=== PATIENT | female | born 1930 | race Caucasian/White ===

== ENCOUNTER 2018-09-04 20:56 | Inpatient (IN) ==
[2018-09-04] MEDS ORDERED: Morphine Inj 4 MG/ML Vial IV.PUSH ONE (21:32)
--- NOTE | 2018-09-04 21:32 | ED ---
HPI General Chief complaint: Extremity Injury, Lower Stated complaint: R Hip pain/Fall Time Seen by Provider: 09/04/18 21:08 Source: patient Mode of arrival: EMS Limitations: no limitations History of Present Illness HPI narrative: The patient is an 88 year old female who presents to the [facility] emergency department with a history of having a waist high dresser fall on her on the floor prior to arrival. The patient reports that she was attempting to rearrange some papers in the third drawer when the dresser fell on her. She reports that she was unable to get up. She reports having pelvis pain worse in the right hip compared to the left. She denies any prior pelvis or hip surgery. Patient was brought in by ambulance services. The patient had intact sensation and pulses. The patient had pain with any attempts at movement of her pelvis or hips. The patient reports that her primary care physician is in [facility]. She denies taking any blood thinners or aspirin on a daily basis. She denies hitting her head or losing consciousness. She reports that she fell backwards primarily onto the right hip. She denies having any other injuries associated. She denies having any chest pain, chest pressure, or shortness of breath. She denies having any abdominal pain. On review of systems otherwise, the patient denies having any known recent fevers, cough, congestion, neck pain, vomiting, diarrhea, urinary symptoms, or neurologic symptoms. Related Data Home Medications Medication Instructions Recorded Confirmed bupropion HCl 100 mg PO DAILY 09/04/18 09/05/18 carvedilol 6.25 mg PO BID 09/04/18 09/05/18 olmesartan-hydrochlorothiazide 1 tab PO DAILY 09/04/18 09/05/18 gabapentin 100 mg PO HS 09/05/18 09/05/18 Allergies Allergy/AdvReac Type Severity Reaction Status Date / Time codeine AdvReac Chest Pain Verified 09/05/18 02:59 Review of Systems ROS: all other systems reviewed are negative [facility] Medical History Medical History Hyperlipidemia (Acute) Hypertension (Acute) Social History Social History Substance History: No History of Abuse Second Hand Smoke Exposure: No Smoking Status: Never smoker How Often Do You Have a Drink Containing Alcohol: Never Recent Travel in [facility] within the Last 8 Weeks: No Recent Out of Country Travel within the Last 8 Weeks: No Immunization History Tetanus Immunization: <5 Years Exam Const General: cooperative, no acute distress and well developed Nutritional Appearance: well nourished Orientation: alert, awake and oriented x3 HENMT Head: normocephalic and atraumatic Nose: no nasal discharge and no epistaxis Mouth: moist mucous membranes Throat: posterior oropharynx normal and uvula midline Eyes Sclera: normal sclerae Pupils: PERRL EOM: EOM intact bilaterally Neck Neck: no meningeal signs, trachea midline and no JVD Resp Effort & Inspection: no use of accessory muscles Auscultation: clear to auscultation bilaterally Cardio Rate: regular rate Rhythm: regular rhythm Heart Sounds: no murmurs GI Inspection: non-distended Palpation: soft, no hepatosplenomegaly, no guarding, not rigid and nontender Auscultation: normal bowel sounds Back/Spine/Pelvis Back: no CVA tenderness Cervical Spine: No cervical spinal tenderness Thoracic/Lumbar Spine: No thoracic spinal tenderness and No lumbar spinal tenderness Skin General: dry skin (warm) Neuro General: alert, awake, oriented x3 and other (Grossly nonfocal.) Speech: speech normal Motor: no movement abnormalities noted Extrem General: normal to inspection (2+ pulses in all 4 extremities. No pelvis instability or pain on pelvic rock.), no calf tenderness, no clubbing, no cyanosis and no edema Right upper extremity: normal to inspection and full ROM Left upper extremity: normal to inspection and full ROM Right lower extremity: hip/thigh (The patient has no visible deformity, however the patient reports pain in the right hip with flexion of the hip and internal and external rotation. No knee, ankle, or foot pain. The patient has full range of motion of her knee, ankle, foot. Less than 3-second capillary refill. Intact sensation over all digits. The patient has soft compartments.) Left lower extremity: hip/thigh (On attempts at flexion, extension, internal and external rotation of the left hip, the patient reports having pain in the left groin.No knee, ankle, or foot pain. The patient has full range of motion of her knee, ankle, foot. Less than 3-second capillary refill. Intact sensation over all digits. ) Psych Mood: congruent mood Affect: normal affect Judgment: judgment good Course Consultations Consultation #1: The patient's case including history, pertinent physical examination findings, and laboratory studies were discussed with Dr. Gallagher, the trauma surgeon. It was agreed that the patient would be admitted to the trauma service. Initial Documented Vital Signs Pulse Rate 60 09/04/18 21:10 Respiratory Rate 20 09/04/18 21:10 Blood Pressure 194/86 H 09/04/18 21:10 Pulse Oximetry 97 09/04/18 21:10 Last Documented Vital Signs Temperature 97.9 F 09/05/18 03:55 Pulse Rate 66 09/05/18 03:55 Respiratory Rate 16 09/05/18 03:55 Blood Pressure 146/73 H 09/05/18 03:55 Pulse Oximetry 98 09/05/18 03:55 Medical Decision Making MDM Narrative Medical decision making narrative: During the course of the patient's emergency department visit, the patient's history, examination, and differential diagnosis were reviewed with the patient. The patient was placed on a local city driver with oximetry and frequent blood pressure monitoring. The patient had IV access obtained and blood work sent for analysis. A diagnostic evaluation was started regarding the patient's pelvis pain. The patient was started on normal saline IV fluids at 100 mL/hr, Morphine for pain, Zofran for nausea. The patient's diagnostic studies are remarkable for a CBC that is essentially within normal limit, PT PTT within normal limits, chemistries remarkable for a CO2 of 32.6, BUN 19, creatinine 1.03, cardiac enzymes are within normal limits, lipase 161. An x-ray of the patient's right hip reveals a probable minimally displaced right superior pubic ramus fracture, no other acute abnormality. CT scan of the abdomen and pelvis reveals multiple pelvic fractures and an anterior pelvic extraperitoneal hematoma. Right shoulder x-ray showed no acute abnormality. Chest x-ray showed no mild bibasilar atelectasis. A call was placed out to the trauma surgeon regarding this patient's case. He did agree to admit the patient for continued evaluation and treatment. The patient's results were discussed with the patient, including the plan of care. I explained that further testing and/ or monitoring is indicated based on the patient's history, examination, and/ or laboratory findings. Therefore, I recommended admission for additional evaluation. The patient expressed understanding and was agreeable with this plan. The patient was admitted to the hospital in guarded condition and sent to a bed under the care of trauma service. The patient CT scan of the abdomen and pelvis showed multiple pelvis fractures including a right sacral all of fracture, superior ramus fracture that extends into the junction of the acetabulum. Medical Screen Exam Complete: Yes Emergency Medical Condition: Yes Differential Diagnosis Differential Diagnosis: Pelvis fracture, versus hip fracture, versus hip dislocation, versus contusion Medical Records Medical records reviewed: Yes I reviewed the patient's medical records. Lab Data Lab results reviewed: Yes I reviewed the patient's lab results. Result diagrams: 09/04/18 22:16 09/04/18 22:16 Lab Results 09/04/18 09/04/18 09/04/18 Range/Units 22:16 22:16 22:16 WBC 9.0 (4.0-11.0) th/mm3 RBC 4.31 (4.00-5.30) mil/mm3 Hgb 13.0 (11.6-15.3) gm/dL Hct 38.6 (35.0-46.0) % MCV 89.5 (80.0-100.0) fL MCH 30.2 (27.0-34.0) pg MCHC 33.7 (32.0-36.0) % RDW 14.4 (11.6-17.2) % Plt Count 175 (150-450) th/mm3 MPV 7.8 (7.0-11.0) fL Neut % (Auto) 78.7 H (16.0-70.0) % Lymph % (Auto) 15.1 (9.0-44.0) % Story % (Auto) 5.0 (0.0-8.0) % Eos % (Auto) 0.7 (0.0-4.0) % Baso % (Auto) 0.5 (0.0-2.0) % Neut # (Auto) 7.1 (1.8-7.7) th/mm3 Lymph # (Auto) 1.4 (1.0-4.8) th/mm3 Story # (Auto) 0.5 (0.0-0.9) th/mm3 Eos # (Auto) 0.1 (0.0-0.4) th/mm3 Baso # (Auto) 0.0 (0.0-0.2) th/mm3 WBC Differential . Differential Comment Auto diff final PT 10.0 (9.8-11.6) sec INR 1.0 Ratio APTT 26.8 (23.4-31.7) sec Sodium (136-145) meq/L Potassium (3.5-5.1) meq/L Chloride (98-107) meq/L Carbon Dioxide (21.0-32.0) meq/L Anion Gap (5-15) meq/L BUN (7-18) mg/dL Creatinine (0.50-1.00) mg/dL Estimated GFR (>89) mL/min Random Glucose (74-106) mg/dL Calcium (8.5-10.1) mg/dL Total Bilirubin (0.2-1.0) mg/dL AST (15-37) U/L ALT (10-53) U/L Alkaline Phosphatase (45-117) U/L Total Creatine Kinase (26-192) U/L Troponin I (0.02-0.05) ng/mL Total Protein (6.4-8.2) g/dL Albumin (3.4-5.0) g/dL Lipase 161 (73-393) U/L Nasal Screen MRSA (PCR) (Negative) 09/04/18 09/05/18 Range/Units 22:16 04:45 WBC (4.0-11.0) th/mm3 RBC (4.00-5.30) mil/mm3 Hgb (11.6-15.3) gm/dL Hct (35.0-46.0) % MCV (80.0-100.0) fL MCH (27.0-34.0) pg MCHC (32.0-36.0) % RDW (11.6-17.2) % Plt Count (150-450) th/mm3 MPV (7.0-11.0) fL Neut % (Auto) (16.0-70.0) % Lymph % (Auto) (9.0-44.0) % Story % (Auto) (0.0-8.0) % Eos % (Auto) (0.0-4.0) % Baso % (Auto) (0.0-2.0) % Neut # (Auto) (1.8-7.7) th/mm3 Lymph # (Auto) (1.0-4.8) th/mm3 Story # (Auto) (0.0-0.9) th/mm3 Eos # (Auto) (0.0-0.4) th/mm3 Baso # (Auto) (0.0-0.2) th/mm3 WBC Differential Differential Comment PT (9.8-11.6) sec INR Ratio APTT (23.4-31.7) sec Sodium 141 (136-145) meq/L Potassium 3.6 (3.5-5.1) meq/L Chloride 103 (98-107) meq/L Carbon Dioxide 32.6 H (21.0-32.0) meq/L Anion Gap 5 (5-15) meq/L BUN 19 H (7-18) mg/dL Creatinine 1.03 H (0.50-1.00) mg/dL Estimated GFR 51 L (>89) mL/min Random Glucose 95 (74-106) mg/dL Calcium 8.7 (8.5-10.1) mg/dL Total Bilirubin 0.5 (0.2-1.0) mg/dL AST 29 (15-37) U/L ALT 33 (10-53) U/L Alkaline Phosphatase 52 (45-117) U/L Total Creatine Kinase 82 (26-192) U/L Troponin I Less than 0.02 L (0.02-0.05) ng/mL Total Protein 7.3 (6.4-8.2) g/dL Albumin 3.6 (3.4-5.0) g/dL Lipase (73-393) U/L Nasal Screen MRSA (PCR) Not detected (Negative) Imaging Data Radiologist's impression: Hip X-Ray 09/04/18 21:22 CONCLUSION: 1. Probable minimally displaced right superior pubic ramus fracture. 2. No fracture or subluxation of either hip. 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 Chest X-Ray 09/04/18 21:23 CONCLUSION: Mild bibasilar atelectasis. Abdomen/Pelvis CT 09/05/18 00:00 CONCLUSION: 1. Multiple pelvic fractures and anterior pelvic extraperitoneal hematoma 2. Likely benign and/or chronic findings involving the abdominal viscera as described Shoulder X-Ray 09/05/18 00:10 CONCLUSION: No evidence of recent bony injury. ECG Data Attestation: I personally reviewed and interpreted this ECG as follows: Interpretation: The patient had a EKG done on arrival that shows a sinus bradycardia heart rate of 58, QRS duration is 155 ms, QTC is 428 ms, the patient is noted to have marked left axis deviation, right bundle branch block, no acute ST segment elevation, T waves are inverted in lead III, V1, V2, V3. Discharge Plan Discharge Disposition Patient Disposition: 30 Still Patient Discharge Details Diagnosis: Multiple closed pelvic fractures without disruption of pelvic anvik, Fall Physicians Team ED Provider: Seema Mckinney Primary Care Provider: UNKNOWN, Attending Provider: Juan Gallagher Other Providers: Jair Marin ; Heidy Ortiz ; Aleshia Cueto ; Garth Avalos ; Sadie Walters ; Paige Thomas ; Elan Kathleen ; Juan Gallagher ; Antoine Bravo ; [employer] Discharge Interventions Interventions: ED Discharge Assessment Last Done: 09/05/18 02:36 Status ED Status: Left Department Discharge Information Discharge Date/Time: 09/05/18 02:36
--- NOTE | 2018-09-04 21:54 | XR ---
EXAM DATE: 09/04/2018 9:51 PM EST AGE/SEX: 88 years / Female INDICATIONS: Trauma. Post fall. CLINICAL DATA: This is the patient's initial encounter. Patient reports that signs and symptoms have been present for 1 day and indicates a pain score of 0/10. MEDICAL/SURGICAL HISTORY: Hypertension. None. COMPARISON: No prior exams available for comparison. FINDINGS: There is mild atelectasis of both bases. No pneumonic infiltrate, pneumothorax or large effusion seen . Heart size within normal limits. Mid to upper thoracic kyphoplasty changes are noted. No perceptible acute bony abnormality. CONCLUSION: Mild bibasilar atelectasis. Electronically signed by: Tiburcio Farrell MD 09/04/2018 9:53 PM EST
--- NOTE | 2018-09-04 22:00 | XR ---
EXAM DATE: 09/04/2018 9:54 PM EST AGE/SEX: 88 years / Female INDICATIONS: Right hip pain post fall. Pain near rami of pelvis also. CLINICAL DATA: This is the patient's initial encounter. Patient reports that signs and symptoms have been present for 1 day and indicates a pain score of 10/10. MEDICAL/SURGICAL HISTORY: Hypertension. None. COMPARISON: No prior exams available for comparison. FINDINGS: A minimally displaced fracture of the right superior pubic ramus is suspected. Bony pelvis otherwise appears intact. No fracture or subluxation of either hip. There is moderate to severe bilateral hip o steoarthritis. CONCLUSION: 1. Probable minimally displaced right superior pubic ramus fracture. 2. No fracture or subluxation of either hip. 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 Electronically signed by: Tiburcio Farrell MD 09/04/2018 9:59 PM EST
[2018-09-04] MEDS: Sod Chloride 0.9% Inj 1,000 ML IV.CONT SCH (22:16)
[2018-09-04 22:36] LABS: Baso % (Auto) 0.5 % (0.0-2.0); Eos # (Auto) 0.1 th/mm3 (0.0-0.4); Eos % (Auto) 0.7 % (0.0-4.0); Hematocrit 38.6 % (35.0-46.0); Lymph # (Auto) 1.4 th/mm3 (1.0-4.8); Lymph % (Auto) 15.1 % (9.0-44.0); Mean Corpuscular HGB Conc 33.7 % (32.0-36.0); Mean Corpuscular Hemoglobin 30.2 pg (27.0-34.0); Mean Corpuscular Volume 89.5 fL (80.0-100.0); Mean Platelet Volume 7.8 fL (7.0-11.0); Mono # (Auto) 0.5 th/mm3 (0.0-0.9); Neut # (Auto) 7.1 th/mm3 (1.8-7.7); Neut % (Auto) 78.7 % (16.0-70.0); Platelet Count 175 th/mm3 (150-450); Red Blood Count 4.31 mil/mm3 (4.00-5.30); Red Cell Distribution Width 14.4 % (11.6-17.2)
[2018-09-04 22:51] LABS: Activated Partial Thrombo Time 26.8 sec (23.4-31.7)
[2018-09-04 22:56] LABS: Alanine Aminotransferase 33 U/L (10-53); Albumin 3.6 g/dL (3.4-5.0); Anion Gap 5 meq/L (5-15); Aspartate Aminotransferase 29 U/L (15-37); Blood Urea Nitrogen 19 mg/dL (7-18); Calcium 8.7 mg/dL (8.5-10.1); Carbon Dioxide 32.6 meq/L (21.0-32.0); Chloride 103 meq/L (98-107); Glomerular Filtration Rate 51 mL/min (>89); Glucose,Random 95 mg/dL (74-106); Potassium 3.6 meq/L (3.5-5.1); Sodium 141 meq/L (136-145)
[2018-09-04 22:59] LABS: Alkaline Phosphatase 52 U/L (45-117); Total Protein 7.3 g/dL (6.4-8.2)
[2018-09-04 23:05] LABS: Creatine Kinase 82 U/L (26-192)
--- NOTE | 2018-09-05 00:49 | CT ---
EXAM DATE: 09/05/2018 12:33 AM EST AGE/SEX: 88 years / Female INDICATIONS: Lower abdominal pain, dresser fell on patient. CLINICAL DATA: This is the patient's initial encounter. Patient reports that signs and symptoms have been present for 1 day and indicates a pain score of 8/10. MEDICAL/SURGICAL HISTORY: Hypertension. None. ORAL CONTRAST: No oral contrast ingested. RADIATION DOSE: 6.88 CTDI (mGy) COMPARISON: No prior exams available for comparison. TECHNIQUE: Multiple contiguous axial images were obtained through the abdomen and pelvis following b olus infusion of 95 ml Omnipaque 350 (iohexol) nonionic water-soluble contrast as a single exam dos e. No oral contrast ingested. Using automated exposure control and adjustment of the mA and/or kV ac cording to patient size, radiation dose was kept as low as reasonably achievable to obtain optimal di agnostic quality images. DICOM format image data is available electronically for review and comparis on. FINDINGS: Lower Lungs: Mild atelectasis in the lung bases. Liver: Mild intra and extrahepatic biliary ductal dilatation with common duct diameter of approximate ly 12 mm. Small left lobe liver cyst. Spleen: Homogeneous density without enlargement. Pancreas: Slightly less than 2 cm circumscribed cystic area in the pancreatic head which appears sha rly benign. Kidneys: Small bilateral renal cysts. No evidence of hydronephrosis. Adrenal Glands: Unremarkable. Aorta: The aorta and proximal iliac vessels are grossly unremarkable without aneurysmal dilation. Bowel/Mesentery: The bowel loops are grossly unremarkable. The cecum and sigmoid colon have a normal configuration. Abdominal Wall: Intact. Retroperitoneum: No evidence of adenopathy in the retrocrural, para-aortic, or deep pelvic regions. Bladder: Anterior perivesical induration which may be edema or hematoma associated with pelvic fract ures. Reproductive Organs: Uterus surgically absent. No evidence of pelvic mass or free fluid Inguinal: The inguinal region is unremarkable without evidence of adenopathy. Bony Structures: Minimally displaced oblique fracture involving the right sacral ala adjacent to an d involving the anterior aspect of the right sacroiliac joint. Minimally displaced fractures of the i nferior pubic rami bilaterally. Slight fragmentation of the pubic symphysis. Minimally displaced roma ical disruption at the junction of right superior pubic ramus with the acetabulum. Prominent degenera tive changes in the hips bilaterally. CONCLUSION: 1. Multiple pelvic fractures and anterior pelvic extraperitoneal hematoma 2. Likely benign and/or chronic findings involving the abdominal viscera as described Electronically signed by: Tiburcio Luna MD 09/05/2018 12:48 AM EST
--- NOTE | 2018-09-05 01:04 | XR ---
EXAM DATE: 09/05/2018 12:56 AM EST AGE/SEX: 88 years / Female INDICATIONS: Right shoulder pain after a dresser falling on patient. CLINICAL DATA: This is the patient's initial encounter. Patient reports that signs and symptoms have been present for 1 day and indicates a pain score of 8/10. MEDICAL/SURGICAL HISTORY: Hypertension. None. COMPARISON: No prior exams available for comparison. FINDINGS: Bony structures are intact and in normal alignment. Joints are intact without dislocation or signifi cant arthropathy. Osseous density is normal. Soft tissues are unremarkable. No radiopaque foreign bodies seen. CONCLUSION: No evidence of recent bony injury. Electronically signed by: Tiburcio Luna MD 09/05/2018 1:02 AM EST
--- NOTE | 2018-09-05 01:24 | P.HPCC ---
History of Present Illness Primary Care Physician: UNKNOWN Chief Complaint: pelvic pain History of Present Illness: 88 year old female who presents to the [facility] emergency department with a history of having a waist high dresser fall on her on the floor prior to arrival. The patient reports that she was attempting to rearrange some papers in the third drawer when the dresser fell on her. She reports that she was unable to get up. She reports having pelvis pain worse in the right hip compared to the left. She denies any prior pelvis or hip surgery. Patient was brought in by ambulance services. The patient had intact sensation and pulses. The patient had pain with any attempts at movement of her pelvis or hips. The patient reports that her primary care physician is in [facility]. She denies taking any blood thinners or aspirin on a daily basis. She denies hitting her head or losing consciousness. She reports that she fell backwards primarily onto the right hip. She denies having any other injuries associated. She denies having any chest pain, chest pressure, or shortness of breath. She denies having any abdominal pain. On review of systems otherwise, the patient denies having any known recent fevers, cough, congestion, neck pain, vomiting, diarrhea, urinary symptoms, or neurologic symptoms. Inpatient Certification: I certify that the inpatient services were ordered in accordance with Medicare regulations governing the order. This includes certification that hospital inpatient services are reasonable and necessary and in the case of services not specified as inpatient-only under 42 CFR 419.22(n), that they are appropriately provided as inpatient services in accordance to with the 2-midnight benchmark under 43 CFR 412.3(e) Past medical history significant for hypertension breast cancer frequent urinary tract infections Past surgical history significant for rectal prolapse, cholecystectomy, pilonidal cyst Estimated Total Length of Stay (Days): 3 Plans for Post Hospital Care: Not yet determined Review of Systems All other systems reviewed negative except as stated in HPI PMFSH - History History Provided By: Patient - Medical History Medical History: Medical History (Last Reviewed 09/06/18 @ 07:16 by Gricel Mancilla) Hyperlipidemia Hypertension - Tobacco History Second Hand Smoke Exposure: No Smoking Status: Never smoker - Alcohol History How Often Do You Have a Drink Containing Alcohol: Never - Substance Use History Substance History: No History of Abuse - Travel History Recent Travel in the [place] Within the Last 8 Weeks: No Recent Travel Out of the Country Within the Last 8 Weeks: No - Immunization History Tetanus Immunization: <5 Years Medications and Allergies Active Medications: Active Medications Acetaminophen (Tylenol) 650 mg PO Q4H PRN PRN Reason: Acute Pain Al Hydroxide/Mg Hydroxide (Milk Of Nadia Elizabeth) 30 ml PO Q6H PRN PRN Reason: CONSTIPATION Chlorhexidine Gluconate (Chlorhexidine 2% Cloth) 3 pack TOPICAL DAILY@0400 EDITH Stop: 09/10/18 03:59 Chlorhexidine Gluconate (Chlorhexidine 2% Cloth) 3 pack TOPICAL DAILY@0400 PRN PRN Reason: Extra cloth needed Stop: 09/10/18 03:59 Docusate Sodium (Colace) 100 mg PO BID [facility] Enalaprilat (Vasotec Inj) 1.25 mg IV.PUSH Q8H PRN PRN Reason: Blood pressure 180/95 Enoxaparin Sodium (Lovenox Inj) 30 mg SQ Q12HR [facility] Sodium Chloride (Ns Inj) 1,000 mls @ 100 mls/hr IV.CONT .Q10H [facility] Last Admin: 09/04/18 22:16 Dose: 100 mls/hr Ondansetron HCl (Zofran Inj) 4 mg IV.PUSH Q6H PRN PRN Reason: NAUSEA OR VOMITING Sodium Chloride (Ns Flush) 2 ml IV.FLUSH UNSCH PRN PRN Reason: FLUSH AFTER USING IV ACCESS Allergies Allergy/AdvReac Type Severity Reaction Status Date / Time codeine AdvReac Chest Pain Verified 09/05/18 02:59 Home Medications Medication Instructions Recorded Confirmed Type bupropion HCl 100 mg PO Q12HR 09/04/18 09/05/18 History carvedilol 6.25 mg PO BID 09/04/18 09/05/18 History olmesartan-hydrochlorothiazide 1 tab PO DAILY 09/04/18 09/05/18 History gabapentin 100 mg PO HS 09/05/18 09/05/18 History Results - Labs CBC & Chem 7: 09/06/18 09:39 09/06/18 03:59 Labs: Short CBC 09/04/18 Range/Units 22:16 WBC 9.0 (4.0-11.0) th/mm3 Hgb 13.0 (11.6-15.3) gm/dL Hct 38.6 (35.0-46.0) % Plt Count 175 (150-450) th/mm3 BMP 09/04/18 22:16 Sodium 141 Potassium 3.6 Chloride 103 Carbon Dioxide 32.6 H BUN 19 H Creatinine 1.03 H Calcium 8.7 Cardiac Enzymes 09/04/18 Range/Units 22:16 Total Creatine Kinase 82 (26-192) U/L Troponin I Less than 0.02 L (0.02-0.05) ng/mL Liver Function 09/04/18 Range/Units 22:16 Total Bilirubin 0.5 (0.2-1.0) mg/dL AST 29 (15-37) U/L ALT 33 (10-53) U/L Alkaline Phosphatase 52 (45-117) U/L Albumin 3.6 (3.4-5.0) g/dL - Imaging Impressions Hip X-Ray 09/04/18 21:22 CONCLUSION: 1. Probable minimally displaced right superior pubic ramus fracture. 2. No fracture or subluxation of either hip. 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 Chest X-Ray 09/04/18 21:23 CONCLUSION: Mild bibasilar atelectasis. Abdomen/Pelvis CT 09/05/18 00:00 CONCLUSION: 1. Multiple pelvic fractures and anterior pelvic extraperitoneal hematoma 2. Likely benign and/or chronic findings involving the abdominal viscera as described Shoulder X-Ray 09/05/18 00:10 CONCLUSION: No evidence of recent bony injury. Exam Vital signs: Vital Signs 09/04/18 21:10 09/04/18 21:12 09/04/18 23:27 Pulse Rate 60 60 Respiratory Rate 20 20 Blood Pressure 194/86 H Pulse Oximetry 97 97 96 Intake & Output 09/04/18 09/04/18 09/05/18 06:59 18:59 06:59 Weight 58.967 kg - Constitutional mild distress - Routine HEENT Exam Head: Present: normocephalic, atraumatic Eye: Present: EOMI, PERRL ENT: Present: mucous membranes dry - Routine Neck Exam Present: trachea midline. Absent: tenderness - Routine Chest/Breast/Axilla Exam Chest wall: Absent: tenderness - Routine Respiratory Exam Present: decreased breath sounds, CTA bilaterally - Routine Cardiovascular Exam Present: RRR - Routine Abdominal Exam Present: soft. Absent: tenderness, distended - Routine Extremities Exam Present: pulses intact, tenderness (to pelvic manipulation, stable). Absent: cyanosis, clubbing, edema - Routine Skin Exam Present: dry, warm - Routine Neurological Exam Present: alert, oriented X3, CN II-XII intact. Absent: sensory deficit, motor deficit Caprini VTE Risk Assessment Caprini VTE Risk Assessment: Moderate/High Risk (score >= 2) Caprini Risk Assessment Model: Point Value = 1 Point Value = 2 Point Value = 3 Point Value = 5 Age 41-60 Minor surgery BMI > 25 kg/m2 Swollen legs Varicose veins or History of unexplained or recurrent spontaneous Oral contraceptives or hormone replacement Sepsis (< 1 month) Serious lung disease, including pneumonia (< 1 month) Abnormal pulmonary function Acute myocardial infarction Congestive heart failure (< 1 month) History of inflammatory bowel disease Medical patient at bed rest Age 61-74 Arthroscopic surgery Major open surgery (> 45 min) Laparoscopic surgery (> 45 min) Malignancy Confined to bed (> 72 hours) Immobilizing plaster cast Central venous access Age >= 75 History of VTE Family history of VTE Factor V Leiden Prothrombin [id number] Lupus anticoagulant Anticardiolipin antibodies Elevated serum homocysteine Heparin-induced thrombocytopenia Other congenital or acquired thrombophilia Stroke (< 1 month) Elective arthroplasty Hip, pelvis, or leg fracture Acute spinal cord injury (< 1 month) Prophylaxis Regimen: Total Risk Factor Score Risk Level Prophylaxis Regimen 0-1 Low Early ambulation 2 Moderate Order ONE of the following: *Sequential Compression Device (SCD) *Heparin 5000 units SQ BID 3-4 Higher Order ONE of the following medications: *Heparin 5000 units SQ TID *Enoxaparin/Lovenox 40 mg SQ daily (WT < 150 kg, CrCl > 30 mL/min) *Enoxaparin/Lovenox 30 mg SQ daily (WT < 150 kg, CrCl > 10-29 mL/min) *Enoxaparin/Lovenox 30 mg SQ BID (WT < 150 kg, CrCl > 30 mL/min) AND/OR *Sequential Compression Device (SCD) 5 or more Highest Order ONE of the following medications: *Heparin 5000 units SQ TID (Preferred with Epidurals) *Enoxaparin/Lovenox 40 mg SQ daily (WT < 150 kg, CrCl > 30 mL/min) *Enoxaparin/Lovenox 30 mg SQ daily (WT < 150 kg, CrCl > 10-29 mL/min) *Enoxaparin/Lovenox 30 mg SQ BID (WT < 150 kg, CrCl > 30 mL/min) AND *Sequential Compression Device (SCD) Assessment and Plan - Assessment and Plan Plan: Admit to trauma service Pain control and pulmonary toilet Orthopedic surgery consult Although fractures appear nonoperative, patient will require rehabilitation and placement
[2018-09-05] MEDS: Chlorhexidine Gluconate 2% 1 Pack (2 Cloths) TOPICAL SCH (03:47)
[2018-09-05] MEDS ORDERED: Chlorhexidine Gluconate 2% 1 Pack (2 Cloths) TOPICAL PRN (04:00)
[2018-09-05] MEDS: Sod Chloride 0.9% Inj 1,000 ML IV.CONT SCH ×3 (06:04→18:11)
--- NOTE | 2018-09-05 07:23 | P.CONOP ---
[facility] Orthopedics Consult Note - [facility] Consult date: 09/05/18 Consult reason: fracture Chief complaint: Multiple Pelvic Fxs s/p [place] Falling on Patient Narrative: Patient is an 88-year-old white female who presented to the emergency department on 09/04/2018 after having a dresser fall on her. She is originally from [place]. She lives with her family down here in [place] for the winter that the dresser fell on her but she did not lose any consciousness. She reports pain in her low back as well as in her groin and pelvis. She states she has pain anytime she moves or tries to bear weight. She states that the only comfortable position at this point is with her hips flexed and laying in bed. She denies any numbness or tingling. Denies any radiation of symptoms. Denies any pain anywhere else. States that she was ambulating with a walker prior to her injury. She states she has a history of right hip pain and arthritis which is complicated her ability to ambulate and has necessitated her use of a walker. <Fredy Shepard - Last Filed: 09/05/18 07:13> Review of Systems Patient denies any fevers, weight loss, headache, visual changes, hearing loss, chest pain, palpitations, shortness of breath, nausea, vomiting, urinary changes , neck or back pain, skin rashes, weakness or numbness of extremities, or depression. All other systems reviewed negative except as stated in HPI <Fredy Shepard - Last Filed: 09/05/18 07:13> PMFSH - History History Provided By: Patient, Family Member - Medical / Surgical Hx Neg / Unobtainable Medical Problems Denied: Yes - Medical History Medical History: Medical History (Last Reviewed 09/05/18 @ 07:14 by ADDISON Wilkinson) Hyperlipidemia Hypertension - Social History I have reviewed the patient's Social History: Yes - Tobacco History Second Hand Smoke Exposure: No Smoking Status: Never smoker - Alcohol History How Often Do You Have a Drink Containing Alcohol: Never - Substance Use History Substance History: No History of Abuse - Travel History Recent Travel in the [facility] Within the Last 8 Weeks: No Recent Travel Out of the Country Within the Last 8 Weeks: No - Immunization History Tetanus Immunization: <5 Years Hx Influenza Vaccine This Season: Yes <Fredy Shepard - Last Filed: 09/05/18 07:13> - Medical History Medical History: Medical History (Last Reviewed 09/05/18 @ 07:14 by ADDISON Wilkinson) Hyperlipidemia Hypertension <Jair Marin - Last Filed: 09/05/18 10:05> Medications and Allergies Active Medications: Active Medications Acetaminophen (Tylenol) 650 mg PO Q4H PRN PRN Reason: Acute Pain Al Hydroxide/Mg Hydroxide (Milk Of Magnesia Liq) 30 ml PO Q6H PRN PRN Reason: CONSTIPATION Bupropion HCl (Wellbutrin) 100 mg PO DAILY [facility] Carvedilol (Coreg) 6.25 mg PO BID [facility] Chlorhexidine Gluconate (Chlorhexidine 2% Cloth) 3 pack TOPICAL DAILY@0400 [facility] Stop: 09/10/18 03:59 Last Admin: 09/05/18 03:47 Dose: Not Given Chlorhexidine Gluconate (Chlorhexidine 2% Cloth) 3 pack TOPICAL DAILY@0400 PRN PRN Reason: Extra cloth needed Stop: 09/10/18 03:59 Docusate Sodium (Colace) 100 mg PO BID [facility] Enalaprilat (Vasotec Inj) 1.25 mg IV.PUSH Q8H PRN PRN Reason: Blood pressure 180/95 Enoxaparin Sodium (Lovenox Inj) 30 mg SQ Q12HR [facility] Gabapentin (Neurontin) 300 mg PO BID [facility] Sodium Chloride (Ns Inj) 1,000 mls @ 100 mls/hr IV.CONT .Q10H [facility] Last Admin: 09/05/18 06:04 Dose: 100 mls/hr Ondansetron HCl (Zofran Inj) 4 mg IV.PUSH Q6H PRN PRN Reason: NAUSEA OR VOMITING Sodium Chloride (Ns Flush) 2 ml IV.FLUSH UNSCH PRN PRN Reason: FLUSH AFTER USING IV ACCESS Sodium Chloride (Ns Flush) 2 ml IV.FLUSH BID [facility] <Fredy Shepard - Last Filed: 09/05/18 07:13> Active Medications: Active Medications Acetaminophen (Tylenol) 650 mg PO Q4H PRN PRN Reason: Acute Pain Last Admin: 09/05/18 09:34 Dose: 650 mg Al Hydroxide/Mg Hydroxide (Milk Of Magnesia Liq) 30 ml PO Q6H PRN PRN Reason: CONSTIPATION Bupropion HCl (Wellbutrin) 100 mg PO DAILY [facility] Last Admin: 09/05/18 09:33 Dose: 100 mg Carvedilol (Coreg) 6.25 mg PO BID [facility] Last Admin: 09/05/18 09:33 Dose: 6.25 mg Chlorhexidine Gluconate (Chlorhexidine 2% Cloth) 3 pack TOPICAL DAILY@0400 [facility] Stop: 09/10/18 03:59 Last Admin: 09/05/18 03:47 Dose: Not Given Chlorhexidine Gluconate (Chlorhexidine 2% Cloth) 3 pack TOPICAL DAILY@0400 PRN PRN Reason: Extra cloth needed Stop: 09/10/18 03:59 Docusate Sodium (Colace) 100 mg PO BID [facility] Last Admin: 09/05/18 09:42 Dose: Not Given Enalaprilat (Vasotec Inj) 1.25 mg IV.PUSH Q8H PRN PRN Reason: Blood pressure 180/95 Enoxaparin Sodium (Lovenox Inj) 30 mg SQ Q12HR [facility] Last Admin: 09/05/18 09:35 Dose: 30 mg Gabapentin (Neurontin) 300 mg PO BID [facility] Last Admin: 09/05/18 09:43 Dose: Not Given Sodium Chloride (Ns Inj) 1,000 mls @ 100 mls/hr IV.CONT .Q10H [facility] Last Admin: 09/05/18 09:45 Dose: Not Given Ondansetron HCl (Zofran Inj) 4 mg IV.PUSH Q6H PRN PRN Reason: NAUSEA OR VOMITING Sodium Chloride (Ns Flush) 2 ml IV.FLUSH UNSCH PRN PRN Reason: FLUSH AFTER USING IV ACCESS Sodium Chloride (Ns Flush) 2 ml IV.FLUSH BID [facility] Last Admin: 09/05/18 09:42 Dose: Not Given Tramadol HCl (Ultram) 50 mg PO Q6H PRN PRN Reason: pain 3-10 Last Admin: 09/05/18 07:53 Dose: 50 mg <Jair Marin - Last Filed: 09/05/18 10:05> Allergies Allergy/AdvReac Type Severity Reaction Status Date / Time codeine AdvReac Chest Pain Verified 09/05/18 02:59 Home Medications Medication Instructions Recorded Confirmed Type bupropion HCl 100 mg PO DAILY 09/04/18 09/05/18 History carvedilol 6.25 mg PO BID 09/04/18 09/05/18 History olmesartan-hydrochlorothiazide 1 tab PO DAILY 09/04/18 09/05/18 History gabapentin 100 mg PO HS 09/05/18 09/05/18 History Exam Vital signs: Vital Signs 09/04/18 21:10 09/04/18 21:12 09/04/18 23:27 Temperature Pulse Rate 60 60 Respiratory Rate 20 20 Blood Pressure 194/86 H Pulse Oximetry 97 97 96 09/05/18 03:55 Temperature 97.9 F Pulse Rate 66 Respiratory Rate 16 Blood Pressure 146/73 H Pulse Oximetry 98 Intake & Output 09/04/18 09/05/18 09/05/18 18:59 06:59 18:59 Intake Total 1000 / 1000 Balance 1000 / 1000 Weight 58.9 kg Intake: IV 1000 / 1000 NS Inj 1,000 ML @ 100 mls/hr IV 1000 / 1000 .CONT .Q10H [facility] Rx#:[id number] Other: Weight On Admission 58.9 kg Narrative: General: Well-developed and well-nourished. Resting comfortably in no acute distress Head: Normocephalic and atraumatic Ears: Hearing is intact bilaterally Eyes: Extraocular motion is intact. Pupils are equal round and reactive to light. Neck: No evidence of lymphadenopathy Cranial nerve: II-XII grossly intact Lungs: No use of accessory muscles or breathing and no audible wheezes at bedside Heart: No grade 4 murmur present at bedside Abdomen: Soft and nontender. Musculoskeletal: RLE: Pain in groin and hip with movement of the hip. No pain in the knee, ankle or toes with movement. Full sensation distally with strong dorsiflexion LLE: Minimal discomfort in the hip, knee, ankle or toes with movement. Full sensation distally with strong dorsiflexion BUE: Full movement of shoulder, elbows, wrist and fingers with minimal discomfort. She does have moderate weakness of the right shoulder. Full sensation in bilateral median and ulnar nerve distributions <Fredy Shepard - Last Filed: 09/05/18 07:13> Vital signs: Vital Signs 09/04/18 21:10 09/04/18 21:12 09/04/18 23:27 Temperature Pulse Rate 60 60 Respiratory Rate 20 20 Blood Pressure 194/86 H Pulse Oximetry 97 97 96 09/05/18 03:55 09/05/18 08:24 09/05/18 08:45 Temperature 97.9 F 98.7 F Pulse Rate 66 78 Respiratory Rate 16 18 Blood Pressure 146/73 H 148/67 H Pulse Oximetry 98 96 98 Intake & Output 09/04/18 09/05/18 09/05/18 18:59 06:59 18:59 Intake Total 1000 / 1000 Balance 1000 / 1000 Weight 58.9 kg Intake: IV 1000 / 1000 NS Inj 1,000 ML @ 100 mls/hr IV 1000 / 1000 .CONT .Q10H [facility] Rx#:[id number] Other: Weight On Admission 58.9 kg <Jair Marin A - Last Filed: 09/05/18 10:05> Results - Labs Result Diagrams: 09/04/18 22:16 09/04/18 22:16 Labs: Laboratory Results - last 24 hr 09/04/18 09/04/18 09/04/18 22:16 22:16 22:16 WBC 9.0 RBC 4.31 Hgb 13.0 Hct 38.6 MCV 89.5 MCH 30.2 MCHC 33.7 RDW 14.4 Plt Count 175 MPV 7.8 Neut % (Auto) 78.7 H Lymph % (Auto) 15.1 [place] % (Auto) 5.0 Eos % (Auto) 0.7 Baso % (Auto) 0.5 Neut # (Auto) 7.1 Lymph # (Auto) 1.4 [place] # (Auto) 0.5 Eos # (Auto) 0.1 Baso # (Auto) 0.0 WBC Differential . Differential Comment Auto diff final PT 10.0 INR 1.0 APTT 26.8 Sodium Potassium Chloride Carbon Dioxide Anion Gap BUN Creatinine Estimated GFR Random Glucose Calcium Total Bilirubin AST ALT Alkaline Phosphatase Total Creatine Kinase Troponin I Total Protein Albumin Lipase 161 Nasal Screen MRSA (PCR) 09/04/18 09/05/18 22:16 04:45 WBC RBC Hgb Hct MCV MCH MCHC RDW Plt Count MPV Neut % (Auto) Lymph % (Auto) [place] % (Auto) Eos % (Auto) Baso % (Auto) Neut # (Auto) Lymph # (Auto) [place] # (Auto) Eos # (Auto) Baso # (Auto) WBC Differential Differential Comment PT INR APTT Sodium 141 Potassium 3.6 Chloride 103 Carbon Dioxide 32.6 H Anion Gap 5 BUN 19 H Creatinine 1.03 H Estimated GFR 51 L Random Glucose 95 Calcium 8.7 Total Bilirubin 0.5 AST 29 ALT 33 Alkaline Phosphatase 52 Total Creatine Kinase 82 Troponin I Less than 0.02 L Total Protein 7.3 Albumin 3.6 Lipase Nasal Screen MRSA (PCR) Not detected - Diagnostic results Imaging: Impressions Hip X-Ray 09/04/18 21:22 CONCLUSION: 1. Probable minimally displaced right superior pubic ramus fracture. 2. No fracture or subluxation of either hip. 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 Chest X-Ray 09/04/18 21:23 CONCLUSION: Mild bibasilar atelectasis. Abdomen/Pelvis CT 09/05/18 00:00 CONCLUSION: 1. Multiple pelvic fractures and anterior pelvic extraperitoneal hematoma 2. Likely benign and/or chronic findings involving the abdominal viscera as described Shoulder X-Ray 09/05/18 00:10 CONCLUSION: No evidence of recent bony injury. Shoulder x-ray: report reviewed, image reviewed Hip x-ray: report reviewed, image reviewed Hip CT: report reviewed, image reviewed <Fredy Shepard - Last Filed: 09/05/18 07:13> - Labs Result Diagrams: 09/04/18 22:16 09/04/18 22:16 Labs: Laboratory Results - last 24 hr 09/04/18 09/04/18 09/04/18 22:16 22:16 22:16 WBC 9.0 RBC 4.31 Hgb 13.0 Hct 38.6 MCV 89.5 MCH 30.2 MCHC 33.7 RDW 14.4 Plt Count 175 MPV 7.8 Neut % (Auto) 78.7 H Lymph % (Auto) 15.1 [place] % (Auto) 5.0 Eos % (Auto) 0.7 Baso % (Auto) 0.5 Neut # (Auto) 7.1 Lymph # (Auto) 1.4 [place] # (Auto) 0.5 Eos # (Auto) 0.1 Baso # (Auto) 0.0 WBC Differential . Differential Comment Auto diff final PT 10.0 INR 1.0 APTT 26.8 Sodium Potassium Chloride Carbon Dioxide Anion Gap BUN Creatinine Estimated GFR Random Glucose Calcium Total Bilirubin AST ALT Alkaline Phosphatase Total Creatine Kinase Troponin I Total Protein Albumin Lipase 161 Nasal Screen MRSA (PCR) 09/04/18 09/05/18 22:16 04:45 WBC RBC Hgb Hct MCV MCH MCHC RDW Plt Count MPV Neut % (Auto) Lymph % (Auto) [place] % (Auto) Eos % (Auto) Baso % (Auto) Neut # (Auto) Lymph # (Auto) [place] # (Auto) Eos # (Auto) Baso # (Auto) WBC Differential Differential Comment PT INR APTT Sodium 141 Potassium 3.6 Chloride 103 Carbon Dioxide 32.6 H Anion Gap 5 BUN 19 H Creatinine 1.03 H Estimated GFR 51 L Random Glucose 95 Calcium 8.7 Total Bilirubin 0.5 AST 29 ALT 33 Alkaline Phosphatase 52 Total Creatine Kinase 82 Troponin I Less than 0.02 L Total Protein 7.3 Albumin 3.6 Lipase Nasal Screen MRSA (PCR) Not detected - Diagnostic results Imaging: Impressions Hip X-Ray 09/04/18 21:22 CONCLUSION: 1. Probable minimally displaced right superior pubic ramus fracture. 2. No fracture or subluxation of either hip. 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 Chest X-Ray 09/04/18 21:23 CONCLUSION: Mild bibasilar atelectasis. Abdomen/Pelvis CT 09/05/18 00:00 CONCLUSION: 1. Multiple pelvic fractures and anterior pelvic extraperitoneal hematoma 2. Likely benign and/or chronic findings involving the abdominal viscera as described Shoulder X-Ray 09/05/18 00:10 CONCLUSION: No evidence of recent bony injury. <Jair Marin - Last Filed: 09/05/18 10:05> Assessment and Plan - Problem List (1) Pubic ramus fracture Code(s): S32.599A - Other specified fracture of unspecified pubis, initial encounter for closed fracture Status: Acute Qualifiers: Encounter type: initial encounter Fracture type: closed Laterality: right Qualified Code(s): S32.591A - Other specified fracture of right pubis, initial encounter for closed fracture (2) Fracture of sacrum Code(s): S32.10XA - Unspecified fracture of sacrum, initial encounter for closed fracture Status: Acute Qualifiers: Encounter type: initial encounter Zone of sacrum fracture: zone I of sacrum Fracture type: closed - Assessment and Plan 1) Right Superior/Inferior Pubic Rami Fx 2) Right Grade I sacral Ala Fx -Treatment options were discussed with the patient and her daughter. The patient is suffered multiple pelvic fractures with the right side. Fortunately , these fractures are very stable and will not require any surgical management. We will proceed with nonoperative management. I informed the patient that these are very stable and capable of full weightbearing. I informed the patient and her daughter that she would likely have weakness and pain for the next 2-3 months but it should gradually improve. The patient may fully weight- bear. She will require the use of a walker. We will have therapy work with her while she is admitted and determine whether or not she will require discharge to a rehab facility or home with home health care. The patient has had bad reactions to pain medications in the past. Therefore, we will start her on tramadol and see how she tolerates it. If she tolerates it well, we will discharge her with this. This is and that should resolve with time. She may follow-up with Dr. Marin or his PA in an outpatient setting in 2 weeks. The above patient was reviewed and discussed with Dr. Marin and he agrees with the above dictation. [place] Prescription Drug Monitoring Database has been queried and verified prior to prescribing the controlled substance. Acute pain exception. This patient has normal, predicted, physiological, and time limited response to an adverse mechanical stimulus associated with surgery, trauma, or acute illness as described in my notes. There is a lack of alternative treatment options other than to include the prescribed narcotic treatment for this condition. <Fredy Shepard - Last Filed: 09/05/18 07:13> - Problem List (1) Pubic ramus fracture Code(s): S32.599A - Other specified fracture of unspecified pubis, initial encounter for closed fracture Status: Acute Qualifiers: Encounter type: initial encounter Fracture type: closed Laterality: right Qualified Code(s): S32.591A - Other specified fracture of right pubis, initial encounter for closed fracture (2) Fracture of sacrum Code(s): S32.10XA - Unspecified fracture of sacrum, initial encounter for closed fracture Status: Acute Qualifiers: Encounter type: initial encounter Zone of sacrum fracture: zone I of sacrum Fracture type: closed - Assessment and Plan I also saw and examined this patient. History, past medical history, social history, review of systems, physical exam, radiographs, assessment, and plan were reviewed. Plan of care was discussed and established. Plan on nonoperative treatment of pelvic ring fractures. A mid-level provider in my office (nurse practitioner or physician server assistant) may see this patient on follow-up visits and continue to implement the objectives of this plan including : Starting or adjusting medications, injections, cast application, orthotics, brace application, physical therapy, radiological studies (including x-ray, MRI , CT, ultrasound, bone scan), vascular studies, neurologic studies, specialist consultation, and proceeding with surgical management, as appropriate. <Jair Marin - Last Filed: 09/05/18 10:05>
--- NOTE | 2018-09-05 08:06 | ECG ---
Date Performed: 09/04/2018 Time Performed: 23:10:50 PTAGE: 88 years EKG: SINUS BRADYCARDIA MARKED LEFT AXIS DEVIATION RIGHT BUNDLE BRANCH BLOCK ABNORMAL ECG NO PREVIOUS TRACING DOCTOR: Dylon Lora Interpretating Date/Time 09/05/2018 08:05:15
[2018-09-05] MEDS: Gabapentin 300 MG Capsule PO SCH ×3 (09:33→21:24)
[2018-09-05] MEDS: Carvedilol 6.25 MG Tablet PO SCH ×2 (09:33→21:25)
[2018-09-05] MEDS: buPROPion 100 MG Tablet PO SCH (09:33)
[2018-09-05] MEDS: Acetaminophen 325 MG Tablet PO PRN (09:34)
[2018-09-05] MEDS: Enoxaparin Inj 30 MG/0.3 ML Syringe SQ SCH ×2 (09:35→21:25)
[2018-09-05] MEDS: Sodium Chloride 0.9% 2 ML Flush BID IV.FLUSH SCH ×2 (09:42→21:26)
[2018-09-05] MEDS: Docusate Sodium 100 MG Capsule PO SCH ×2 (09:42→21:25)
--- NOTE | 2018-09-05 11:03 | P.PN ---
Subjective Interval history: Trauma PTD: 1 Patient sitting up in bed. Finishing breakfast. Visitor at bedside. Patient states, "I hate to move. If I am still, I am fine." Patient states she has already worked with PT today. Both patient and visitor concerned for pain management since patient is very sensitive to narcotic medications. Physical Exam Vital signs: Vital Signs 09/04/18 21:10 09/04/18 21:12 09/04/18 23:27 Temperature Pulse Rate 60 60 Respiratory Rate 20 20 Blood Pressure 194/86 H Pulse Oximetry 97 97 96 09/05/18 03:55 09/05/18 08:24 09/05/18 08:45 Temperature 97.9 F 98.7 F Pulse Rate 66 78 Respiratory Rate 16 18 Blood Pressure 146/73 H 148/67 H Pulse Oximetry 98 96 98 Intake & Output 09/04/18 09/05/18 09/05/18 18:59 06:59 18:59 Intake Total 1000 / 1000 Balance 1000 / 1000 Weight 58.9 kg Intake: IV 1000 / 1000 NS Inj 1,000 ML @ 100 mls/hr IV 1000 / 1000 .CONT .Q10H [facility] Rx#:[id number] Other: Weight On Admission 58.9 kg Narrative: GENERAL: This is a 88-year old female sitting up in bed. No distress noted. SKIN: Warm and dry. HEAD: Atraumatic. Normocephalic. EYES: PERRLA ENT: No nasal bleeding or discharge. Mucous membranes pink and moist. NECK: Trachea midline. No JVD. CARDIOVASCULAR: Regular rate and rhythm. RESPIRATORY: No accessory muscle use. Lungs are clear to auscultation. Breath sounds equal bilaterally. No distress or dyspnea. GASTROINTESTINAL: BS + x 4 quads. Abdomen soft, non-tender, nondistended. MUSCULOSKELETAL: Extremities without cyanosis, or edema. + peripheral pulses x 4 extremities. Warm with good capillary refill and sensation. MAEW. NEUROLOGICAL: Awake and alert. Normal speech and pattern. Results - Labs CBC & Chem 7: 09/04/18 22:16 09/04/18 22:16 Laboratory Results - last 24 hr 09/04/18 09/04/18 09/04/18 22:16 22:16 22:16 WBC 9.0 RBC 4.31 Hgb 13.0 Hct 38.6 MCV 89.5 MCH 30.2 MCHC 33.7 RDW 14.4 Plt Count 175 MPV 7.8 Neut % (Auto) 78.7 H Lymph % (Auto) 15.1 [place] % (Auto) 5.0 Eos % (Auto) 0.7 Baso % (Auto) 0.5 Neut # (Auto) 7.1 Lymph # (Auto) 1.4 [place] # (Auto) 0.5 Eos # (Auto) 0.1 Baso # (Auto) 0.0 WBC Differential . Differential Comment Auto diff final PT 10.0 INR 1.0 APTT 26.8 Sodium Potassium Chloride Carbon Dioxide Anion Gap BUN Creatinine Estimated GFR Random Glucose Calcium Total Bilirubin AST ALT Alkaline Phosphatase Total Creatine Kinase Troponin I Total Protein Albumin Lipase 161 Nasal Screen MRSA (PCR) 09/04/18 09/05/18 22:16 04:45 WBC RBC Hgb Hct MCV MCH MCHC RDW Plt Count MPV Neut % (Auto) Lymph % (Auto) [place] % (Auto) Eos % (Auto) Baso % (Auto) Neut # (Auto) Lymph # (Auto) [place] # (Auto) Eos # (Auto) Baso # (Auto) WBC Differential Differential Comment PT INR APTT Sodium 141 Potassium 3.6 Chloride 103 Carbon Dioxide 32.6 H Anion Gap 5 BUN 19 H Creatinine 1.03 H Estimated GFR 51 L Random Glucose 95 Calcium 8.7 Total Bilirubin 0.5 AST 29 ALT 33 Alkaline Phosphatase 52 Total Creatine Kinase 82 Troponin I Less than 0.02 L Total Protein 7.3 Albumin 3.6 Lipase Nasal Screen MRSA (PCR) Not detected - Imaging Impressions Hip X-Ray 09/04/18 21:22 CONCLUSION: 1. Probable minimally displaced right superior pubic ramus fracture. 2. No fracture or subluxation of either hip. 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 Chest X-Ray 09/04/18 21:23 CONCLUSION: Mild bibasilar atelectasis. Abdomen/Pelvis CT 09/05/18 00:00 CONCLUSION: 1. Multiple pelvic fractures and anterior pelvic extraperitoneal hematoma 2. Likely benign and/or chronic findings involving the abdominal viscera as described Shoulder X-Ray 09/05/18 00:10 CONCLUSION: No evidence of recent bony injury. Assessment and Plan - Assessment (1) Pubic ramus fracture Code(s): S32.599A - Other specified fracture of unspecified pubis, initial encounter for closed fracture Status: Acute (2) Fracture of sacrum Code(s): S32.10XA - Unspecified fracture of sacrum, initial encounter for closed fracture Status: Acute - Plan [place]: This is a 88-year-old female who broke her pelvis when a dresser fell on top of her. INJURIES: BILAT inferior pubic ramus fx (all Non-op) RIGHT superior pubic ramus RIGHT sacral ala fx * 2 cm pancreatic cyst * bilateral renal cysts *left liver cyst Procedures: Consults: Orthopedics. Brave nurse liaison. Case management. Diet: Regular diet. Tolerating po diet. Encourage good po intake with each meal. Pulmonary: Encourage good pulmonary toileting. IS at bedside and pt encouraged to use. Rationale for use explained to patient, and verbalized understanding. PAIN Management: Tylenol PRN or [place] 5 mg q 4h. Tramadol 50 mg q6h (if not relieved by [place]). Neurontin 300 mg BID (home) Activity: OOB. PT and OT ordered (WBAT BLE) GI prophylaxis: Pepcid 20 mg BID po Bowel regimen: Colace. MOM PRN. LBM: 0 DVT prophylaxis: Mechanical VTE with SCDs. Chemical management with Lovenox 30 mg BID SQ. DC Planning: Case management consulted for assistance with final discharge disposition. PT recommends rehab. Patient is clear from a trauma surgery standpoint to discharge to rehab soon as placement can be obtained. Pelvic fractures are nonoperative. Emotional support provided to patient and family at bedside and plan of care discussed. Discussed with RN at bedside. Discussed pt condition and plan of care with collaborating trauma surgeon. Patient is hemodynamically stable and being managed on the med/surg floor. The trauma team will round each day, and evaluate plan of care on a daily basis. BILAT inferior pubic ramus fx RIGHT superior pubic ramus RIGHT sacral ala fx Orthopedics consulted and assisting in management and care All pelvic fractures are nonoperative Supportive care Pain management Encourage out of bed PT and OT ordered WBAT BLE Bowel regimen Lovenox for DVT prophylaxis Plan for rehab placement HTN Vital signs every 4 hours and as needed Resume home medications Coreg 6.25 mg BID Cozaar 40 mg daily (1) Pubic ramus fracture Qualifiers: Encounter type: initial encounter Fracture type: closed Laterality: right Qualified Code(s): S32.591A - Other specified fracture of right pubis, initial encounter for closed fracture (2) Fracture of sacrum Qualifiers: Encounter type: initial encounter Zone of sacrum fracture: zone I of sacrum Fracture type: closed
[2018-09-05] MEDS ORDERED: Melatonin 5 MG Tablet PO PRN (15:42)
[2018-09-05] MEDS: Famotidine 20 MG Tablet PO SCH (21:25)
[2018-09-06] MEDS: Chlorhexidine Gluconate 2% 1 Pack (2 Cloths) TOPICAL SCH (03:02)
[2018-09-06] MEDS: Sod Chloride 0.9% Inj 1,000 ML IV.CONT SCH (03:02)
[2018-09-06 05:04] LABS: Calcium 7.5 mg/dL (8.5-10.1); Carbon Dioxide 27.1 meq/L (21.0-32.0); Potassium 3.2 meq/L (3.5-5.1)
[2018-09-06 05:08] LABS: Baso % (Auto) 0.5 % (0.0-2.0); Eos # (Auto) 0.1 th/mm3 (0.0-0.4); Eos % (Auto) 1.5 % (0.0-4.0); Hematocrit 28.7 % (35.0-46.0); Hemoglobin 9.7 gm/dL (11.6-15.3); Lymph # (Auto) 1.8 th/mm3 (1.0-4.8); Lymph % (Auto) 26.9 % (9.0-44.0); Mean Corpuscular HGB Conc 33.8 % (32.0-36.0); Mean Corpuscular Hemoglobin 30.5 pg (27.0-34.0); Mean Platelet Volume 8.2 fL (7.0-11.0); Mono # (Auto) 0.4 th/mm3 (0.0-0.9); Mono % (Auto) 6.3 % (0.0-8.0); Neut # (Auto) 4.4 th/mm3 (1.8-7.7); Neut % (Auto) 64.8 % (16.0-70.0); Platelet Count 119 th/mm3 (150-450); Red Blood Count 3.18 mil/mm3 (4.00-5.30); Red Cell Distribution Width 14.4 % (11.6-17.2); White Blood Count 6.7 th/mm3 (4.0-11.0)
[2018-09-06] MEDS: Gabapentin 300 MG Capsule PO SCH ×2 (09:18→20:35)
[2018-09-06] MEDS: Docusate Sodium 100 MG Capsule PO SCH ×2 (09:18→20:35)
[2018-09-06] MEDS: Carvedilol 6.25 MG Tablet PO SCH ×2 (09:18→20:35)
[2018-09-06] MEDS: Famotidine 20 MG Tablet PO SCH ×2 (09:20→20:35)
[2018-09-06] MEDS: Enoxaparin Inj 30 MG/0.3 ML Syringe SQ SCH ×2 (09:20→20:35)
[2018-09-06] MEDS: buPROPion 100 MG Tablet PO SCH (09:20)
[2018-09-06 10:26] LABS: Hematocrit 28.3 % (35.0-46.0); Hemoglobin 9.8 gm/dL (11.6-15.3)
[2018-09-06] MEDS: Sodium Chloride 0.9% 2 ML Flush BID IV.FLUSH SCH ×2 (11:04→20:41)
--- NOTE | 2018-09-06 11:20 | P.PN ---
Subjective Interval history: Trauma PTD: 2 Patient OOB and sitting on the commode. No distress noted. Daughter at bedside. Patient remains painful with movement. Daughter worried about rehab placement. Physical Exam Vital signs: Vital Signs 09/05/18 11:52 09/05/18 16:25 09/05/18 20:00 Temperature 98.4 F 98.1 F 99.0 F Pulse Rate 68 75 68 Respiratory Rate 20 20 18 Blood Pressure 91/48 L 129/58 L 144/67 H Pulse Oximetry 95 91 L 95 09/05/18 23:45 09/06/18 03:22 09/06/18 07:25 Temperature 99.1 F 99.4 F 98.1 F Pulse Rate 63 75 72 Respiratory Rate 18 19 20 Blood Pressure 153/71 H 121/58 L 101/55 L Pulse Oximetry 94 L 93 L 83 L Intake & Output 09/05/18 09/06/18 09/06/18 18:59 06:59 18:59 Intake Total 1000 / 1000 1240 / 1240 700 / 700 Balance 1000 / 1000 1240 / 1240 700 / 700 Intake: IV 1000 / 1000 1000 / 1000 700 / 700 NS Inj 1,000 ML @ 100 mls/hr IV 1000 / 1000 1000 / 1000 700 / 700 .CONT .Q10H [facility] Rx#:[id number] Oral 240 / 240 Other: # Voids 2 1 1 Narrative: GENERAL: This is a 88-year old female OOB to bedside commode. No distress noted. SKIN: Warm and dry. HEAD: Atraumatic. Normocephalic. EYES: PERRLA ENT: No nasal bleeding or discharge. Mucous membranes pink and moist. NECK: Trachea midline. No JVD. CARDIOVASCULAR: Regular rate and rhythm. RESPIRATORY: No accessory muscle use. Lungs are clear to auscultation. Breath sounds equal bilaterally. No distress or dyspnea. GASTROINTESTINAL: BS + x 4 quads. Abdomen soft, non-tender, nondistended. MUSCULOSKELETAL: Extremities without cyanosis, or edema. + peripheral pulses x 4 extremities. Warm with good capillary refill and sensation. MAEW. NEUROLOGICAL: Awake and alert. Normal speech and pattern. Results - Labs CBC & Chem 7: 09/06/18 09:39 09/06/18 03:59 Laboratory Results - last 24 hr 09/06/18 09/06/18 09/06/18 03:59 03:59 09:39 WBC 6.7 RBC 3.18 L Hgb 9.7 L D 9.8 L Hct 28.7 L 28.3 L MCV 90.0 MCH 30.5 MCHC 33.8 RDW 14.4 Plt Count 119 L D MPV 8.2 Neut % (Auto) 64.8 Lymph % (Auto) 26.9 [place] % (Auto) 6.3 Eos % (Auto) 1.5 Baso % (Auto) 0.5 Neut # (Auto) 4.4 Lymph # (Auto) 1.8 [place] # (Auto) 0.4 Eos # (Auto) 0.1 Baso # (Auto) 0.0 WBC Differential . Differential Comment Auto diff final Sodium 143 Potassium 3.2 L Chloride 107 Carbon Dioxide 27.1 Anion Gap 9 BUN 14 Creatinine 0.73 Estimated GFR 75 L Random Glucose 94 Calcium 7.5 L D Assessment and Plan - Assessment (1) Pubic ramus fracture Code(s): S32.599A - Other specified fracture of unspecified pubis, initial encounter for closed fracture Status: Acute (2) Fracture of sacrum Code(s): S32.10XA - Unspecified fracture of sacrum, initial encounter for closed fracture Status: Acute - Plan [place]: This is a 88-year-old female who broke her pelvis when a dresser fell on top of her. INJURIES: BILAT inferior pubic ramus fx (all Non-op) RIGHT superior pubic ramus RIGHT sacral ala fx * 2 cm pancreatic cyst * bilateral renal cysts *left liver cyst Procedures: Consults: Orthopedics. [place] nurse liaison. Case management. Diet: Regular diet. Tolerating po diet. Encourage good po intake with each meal. Pulmonary: Encourage good pulmonary toileting. IS at bedside and pt encouraged to use. Rationale for use explained to patient, and verbalized understanding. PAIN Management: Tylenol PRN or [place] 5 mg q 4h. Tramadol 50 mg q6h (if not relieved by [place]). Neurontin 300 mg BID (home) Activity: OOB. PT and OT ordered (WBAT BLE) GI prophylaxis: Pepcid 20 mg BID po Bowel regimen: Colace. MOM PRN. LBM: 0 DVT prophylaxis: Mechanical VTE with SCDs. Chemical management with Lovenox 30 mg BID SQ. DC Planning: Case management consulted for assistance with final discharge disposition. PT recommends rehab. Patient is clear from a trauma surgery standpoint to discharge to rehab soon as placement can be obtained. Pelvic fractures are nonoperative. Emotional support provided to patient and family at bedside and plan of care discussed. Discussed with RN at bedside. Discussed pt condition and plan of care with collaborating trauma surgeon. Patient is hemodynamically stable and being managed on the med/surg floor. The trauma team will round each day, and evaluate plan of care on a daily basis. BILAT inferior pubic ramus fx RIGHT superior pubic ramus RIGHT sacral ala fx Orthopedics consulted and assisting in management and care All pelvic fractures are nonoperative H&H = 9.7 / 28. Repeated due to drop: 9.8 / 28.3 Follow-up H&H in the morning Consider CT abdomen and pelvis if H&H continues to decline Supportive care Pain management Encourage out of bed PT and OT ordered WBAT BLE Bowel regimen Lovenox for DVT prophylaxis Plan for rehab placement HTN Vital signs every 4 hours and as needed Resume home medications Coreg 6.25 mg BID Cozaar 40 mg daily - Attending Attestation The exam, history, and the medical decision-making described in the above note were completed with the assistance of the mid-level provider. I reviewed and agree with the findings presented. I attest that I had a [id number] encounter with the patient on the same day, and personally performed and documented my assessment and findings in the medical record. (1) Pubic ramus fracture Qualifiers: Encounter type: initial encounter Fracture type: closed Laterality: right Qualified Code(s): S32.591A - Other specified fracture of right pubis, initial encounter for closed fracture (2) Fracture of sacrum Qualifiers: Encounter type: initial encounter Zone of sacrum fracture: zone I of sacrum Fracture type: closed
[2018-09-06] MEDS: Acetaminophen 325 MG Tablet PO PRN (12:13)
[2018-09-07 07:05] LABS: Hemoglobin 10.6 gm/dL (11.6-15.3)
[2018-09-07] MEDS: Enoxaparin Inj 30 MG/0.3 ML Syringe SQ SCH ×2 (10:47→20:29)
[2018-09-07] MEDS: Docusate Sodium 100 MG Capsule PO SCH ×2 (10:49→20:28)
[2018-09-07] MEDS: Carvedilol 6.25 MG Tablet PO SCH ×3 (10:49→20:28)
[2018-09-07] MEDS: Gabapentin 300 MG Capsule PO SCH ×2 (10:49→20:28)
[2018-09-07] MEDS: buPROPion 100 MG Tablet PO SCH (10:51)
[2018-09-07] MEDS: Famotidine 20 MG Tablet PO SCH ×2 (10:51→20:28)
[2018-09-07] MEDS: Sodium Chloride 0.9% 2 ML Flush BID IV.FLUSH SCH ×2 (10:52→20:31)
--- NOTE | 2018-09-07 11:15 | P.PN ---
Subjective Interval history: Trauma PTD: 3 Patient OOB and sitting in bedside commode. Daughter at bedside. Patient states she is trying to move her bowels. Patient states she just started eating yesterday. Daughter at bedside is extremely worried about transition to rehab. Physical Exam Vital signs: Vital Signs 09/06/18 11:47 09/06/18 16:21 09/06/18 20:00 Temperature 98.3 F 98.3 F 99.1 F Pulse Rate 71 57 L 65 Respiratory Rate 20 20 16 Blood Pressure 115/52 L 93/46 L 126/64 Pulse Oximetry 98 99 93 L 09/07/18 00:00 09/07/18 04:00 09/07/18 08:00 Temperature 99.0 F 98.9 F 98.0 F Pulse Rate 75 72 64 Respiratory Rate 16 16 16 Blood Pressure 136/55 L 135/57 L 98/49 L Pulse Oximetry 90 L 97 97 Intake & Output 09/06/18 09/07/18 09/07/18 18:59 06:59 18:59 Intake Total 700 / 700 Balance 700 / 700 Intake: IV 700 / 700 NS Inj 1,000 ML @ 100 mls/hr IV 700 / 700 .CONT .Q10H [facility] Rx#:[id number] Other: # Voids 2 Narrative: GENERAL: This is a 88-year old female OOB to bedside commode. No distress noted. SKIN: Warm and dry. HEAD: Atraumatic. Normocephalic. EYES: PERRLA ENT: No nasal bleeding or discharge. Mucous membranes pink and moist. NECK: Trachea midline. No JVD. CARDIOVASCULAR: Regular rate and rhythm. RESPIRATORY: No accessory muscle use. Lungs are clear to auscultation. Breath sounds equal bilaterally. No distress or dyspnea. GASTROINTESTINAL: BS + x 4 quads. Abdomen soft, non-tender, nondistended. MUSCULOSKELETAL: Extremities without cyanosis, or edema. + peripheral pulses x 4 extremities. Warm with good capillary refill and sensation. MAEW. NEUROLOGICAL: Awake and alert. Normal speech and pattern. Results - Labs CBC & Chem 7: 09/07/18 06:20 09/06/18 03:59 Laboratory Results - last 24 hr 09/07/18 06:20 Hgb 10.6 L Hct 31.0 L Assessment and Plan - Assessment (1) Pubic ramus fracture Code(s): S32.599A - Other specified fracture of unspecified pubis, initial encounter for closed fracture Status: Acute (2) Fracture of sacrum Code(s): S32.10XA - Unspecified fracture of sacrum, initial encounter for closed fracture Status: Acute - Plan [place]: This is a 88-year-old female who broke her pelvis when a dresser fell on top of her. INJURIES: BILAT inferior pubic ramus fx (all Non-op) RIGHT superior pubic ramus RIGHT sacral ala fx * 2 cm pancreatic cyst * bilateral renal cysts *left liver cyst Procedures: Consults: Orthopedics. [place] nurse liaison. Case management. Diet: Regular diet. Tolerating po diet. Encourage good po intake with each meal. Pulmonary: Encourage good pulmonary toileting. IS at bedside and pt encouraged to use. Rationale for use explained to patient, and verbalized understanding. PAIN Management: Tylenol PRN or [place] 5 mg q 4h. Tramadol 50 mg q6h (if not relieved by [place]). Neurontin 300 mg BID (home) Activity: OOB. PT and OT ordered (WBAT BLE) GI prophylaxis: Pepcid 20 mg BID po Bowel regimen: Colace. MOM. LBM: 0. Intensified with lactulose x1 dose today. DVT prophylaxis: Mechanical VTE with SCDs. Chemical management with Lovenox 30 mg BID SQ. DC Planning: Case management consulted for assistance with final discharge disposition. PT recommends rehab. Patient is clear from a trauma surgery standpoint to discharge to rehab soon as placement can be obtained. Pelvic fractures are nonoperative. Awaiting availability at either [place] or [facility]. Both states they will not have a bed until Tuesday Emotional support provided to patient and family at bedside and plan of care discussed. Discussed with RN at bedside. Discussed pt condition and plan of care with collaborating trauma surgeon. Patient is hemodynamically stable and being managed on the med/surg floor. The trauma team will round each day, and evaluate plan of care on a daily basis. BILAT inferior pubic ramus fx RIGHT superior pubic ramus RIGHT sacral ala fx Orthopedics consulted and assisting in management and care All pelvic fractures are nonoperative H&H = 08.05 Supportive care Pain management Encourage out of bed PT and OT ordered WBAT BLE Bowel regimen Lovenox for DVT prophylaxis Plan for rehab placement HTN Vital signs every 4 hours and as needed Resume home medications Coreg 6.25 mg BID Cozaar 40 mg daily - Attending Attestation The exam, history, and the medical decision-making described in the above note were completed with the assistance of the mid-level provider. I reviewed and agree with the findings presented. I attest that I had a [id number] encounter with the patient on the same day, and personally performed my assessment and findings in the medical record. (1) Pubic ramus fracture Qualifiers: Encounter type: initial encounter Fracture type: closed Laterality: right Qualified Code(s): S32.591A - Other specified fracture of right pubis, initial encounter for closed fracture (2) Fracture of sacrum Qualifiers: Encounter type: initial encounter Zone of sacrum fracture: zone I of sacrum Fracture type: closed
[2018-09-07 14:53] VITALS: RESP 18
[2018-09-08] MEDS: Acetaminophen 325 MG Tablet PO PRN (03:45)
[2018-09-08] MEDS ORDERED: Bisacodyl 10 MG Supp RECTAL ONE (08:25)
[2018-09-08] MEDS: Famotidine 20 MG Tablet PO SCH (10:04)
[2018-09-08] MEDS: buPROPion 100 MG Tablet PO SCH (10:05)
[2018-09-08] MEDS: Gabapentin 300 MG Capsule PO SCH (10:05)
[2018-09-08] MEDS: Docusate Sodium 100 MG Capsule PO SCH (10:05)
[2018-09-08] MEDS: Carvedilol 6.25 MG Tablet PO SCH (10:05)
[2018-09-08] MEDS: Enoxaparin Inj 30 MG/0.3 ML Syringe SQ SCH (10:06)
[2018-09-08] MEDS: Sodium Chloride 0.9% 2 ML Flush BID IV.FLUSH SCH (10:06)
[2018-09-08 12:43] VITALS: BP 137/62; PULSE 73; TEMP 98; O2SAT 94
--- NOTE | 2018-09-08 12:59 | P.DS ---
<Aleshia Cueto F - Last Filed: 09/08/18 12:53> Date of admission: 09/05/18 00:57 Primary care physician: UNKNOWN Attending physician on discharge: Juan Gallagher Anticipated date of discharge: 09/08/18 Brief History from admission: [place] fell on patient DS: Diagnosis - Discharge Diagnosis (1) Pubic ramus fracture Status: Acute (2) Fracture of sacrum Status: Acute DS: Medications - Discharge Medications Prescriptions: hydrocodone-acetaminophen 1 tab PO Q8H PRN 3 Days #9 tab PRN Reason: Acute Pain tramadol 50 mg PO Q6H 7 Days #28 tab DS: Summary Hospital Course: [place]: This is an 88 year old female who presents to the [facility] emergency department with a history of having a waist high dresser fall on her on the floor prior to arrival. The patient reports that she was attempting to rearrange some papers in the third drawer when the dresser fell on her. She reports that she was unable to get up. She reports having pelvis pain worse in the right hip compared to the left. She denies any prior pelvis or hip surgery. Patient was brought in by ambulance services. The patient had intact sensation and pulses. The patient had pain with any attempts at movement of her pelvis or hips. The patient reports that her primary care physician is in [facility]. She denies taking any blood thinners or aspirin on a daily basis. She denies hitting her head or losing consciousness. She reports that she fell backwards primarily onto the right hip. She denies having any other injuries associated. She denies having any chest pain, chest pressure, or shortness of breath. She denies having any abdominal pain. On review of systems otherwise, the patient denies having any known recent fevers, cough, congestion, neck pain, vomiting, diarrhea, urinary symptoms, or neurologic symptoms. INJURIES BILAT inferior pubic ramus fx (all Non-op) RIGHT superior pubic ramus RIGHT sacral ala fx * 2 cm pancreatic cyst * bilateral renal cysts *left liver cyst PMHx: HTN. HLD. Breast CA. UTI's. Arthritis (uses a walker at home) Consults: Orthopedics. Case management. The patient is now tolerating a po diet. Eating and drinking well. Pain is being managed well with PO pain medications, all hospital medications will continue at [facility]. [This patient will be prescribed narcotic pain medications due to his traumatic injuries. The patient has a normal physiological response to severe traumatic injuries and surgery. She will need acute pain management with prescribed narcotic treatment. The [employer] prescription drug monitoring program database has been queried.] (NO driving while taking narcotic pain medication enforced to patient.) We have recommended to patient to continue with stool softeners while taking narcotic pain medications to prevent constipation. Pt has been participating in PT and OT while admitted at [facility] and has been ambulating with their assistance and independently. PT and OT will continue at [facility] rehab All follow up appointments have been provided and discussed with the patient. It is recommended that the patient keeps all his follow up appointments for continued recovery. Patient's condition and plan of care discussed with collaborating trauma surgeon. He is agreeable to plan for discharge today. Therefore, the patient is stable to be [facility] from [facility] surgery standpoint. Thank you for allowing us to participate in her care. We wish Rossy the best in her recovery. BILAT inferior pubic ramus fx RIGHT superior pubic ramus RIGHT sacral ala fx Orthopedics consulted and assisting in management and care All pelvic fractures are nonoperative H&H = 10.6 / 31 Supportive care Pain management Encourage out of bed PT and OT ordered WBAT BLE Bowel regimen Lovenox for DVT prophylaxis Plan for rehab placement once accepted and bed available HTN Vital signs every 4 hours and as needed Resume home medications Coreg 6.25 mg BID Cozaar 40 mg daily - Time Spent with Patient Total time spent providing and/or coordinating discharge services: Greater than 30 minutes - Quality: VTE Deep Vein Thrombosis/Pulmonary Embolism Present on Admission: No Exam Vital signs: Vital Signs 09/07/18 12:56 09/07/18 14:52 09/07/18 20:00 Temperature 99.3 F 98.5 F 99.9 F H Pulse Rate 67 78 98 H Respiratory Rate 16 18 18 Blood Pressure 95/47 L 132/64 126/62 Pulse Oximetry 95 96 99 09/08/18 00:00 09/08/18 03:53 09/08/18 08:00 Temperature 100.1 F H 101.1 F H 98.6 F Pulse Rate 75 78 62 Respiratory Rate 18 18 18 Blood Pressure 136/85 130/70 120/57 L Pulse Oximetry 96 98 96 09/08/18 12:00 Temperature 98.0 F Pulse Rate 73 Respiratory Rate 18 Blood Pressure 137/62 Pulse Oximetry 94 L Intake & Output 09/07/18 09/08/18 09/08/18 18:59 06:59 18:59 Weight 59.1 kg Other: # Voids 4 Narrative: GENERAL: This is a 88-year old female lying in bed. No distress noted. SKIN: Warm and dry. HEAD: Atraumatic. Normocephalic. EYES: PERRLA ENT: No nasal bleeding or discharge. Mucous membranes pink and moist. NECK: Trachea midline. No JVD. CARDIOVASCULAR: Regular rate and rhythm. RESPIRATORY: No accessory muscle use. Lungs are clear to auscultation. Breath sounds equal bilaterally. No distress or dyspnea. GASTROINTESTINAL: BS + x 4 quads. Abdomen soft, non-tender, nondistended. MUSCULOSKELETAL: Extremities without cyanosis, or edema. + peripheral pulses x 4 extremities. Warm with good capillary refill and sensation. MAEW. NEUROLOGICAL: Awake and alert. Normal speech and pattern. Results Procedures completed during hospitalization: . - Impressions ITS Impressions Hip X-Ray 09/04/18 21:22 CONCLUSION: 1. Probable minimally displaced right superior pubic ramus fracture. 2. No fracture or subluxation of either hip. 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 Chest X-Ray 09/04/18 21:23 CONCLUSION: Mild bibasilar atelectasis. Abdomen/Pelvis CT 09/05/18 00:00 CONCLUSION: 1. Multiple pelvic fractures and anterior pelvic extraperitoneal hematoma 2. Likely benign and/or chronic findings involving the abdominal viscera as described Shoulder X-Ray 09/05/18 00:10 CONCLUSION: No evidence of recent bony injury. <Juan Gallagher - Last Filed: 09/08/18 17:38> Date of admission: 09/05/18 00:57 Primary care physician: UNKNOWN DS: Diagnosis - Discharge Diagnosis (1) Pubic ramus fracture Status: Acute (2) Fracture of sacrum Status: Acute DS: Summary - Time Spent with Patient Total time spent providing and/or coordinating discharge services: Exam Vital signs: Vital Signs 09/07/18 20:00 09/08/18 00:00 09/08/18 03:53 Temperature 99.9 F H 100.1 F H 101.1 F H Pulse Rate 98 H 75 78 Respiratory Rate 18 18 18 Blood Pressure 126/62 136/85 130/70 Pulse Oximetry 99 96 98 09/08/18 08:00 09/08/18 12:00 Temperature 98.6 F 98.0 F Pulse Rate 62 73 Respiratory Rate 18 18 Blood Pressure 120/57 L 137/62 Pulse Oximetry 96 94 L Intake & Output 09/07/18 09/08/18 09/08/18 18:59 06:59 18:59 Weight 59.1 kg Other: # Voids 4 Results - Impressions ITS Impressions Hip X-Ray 09/04/18 21:22 CONCLUSION: 1. Probable minimally displaced right superior pubic ramus fracture. 2. No fracture or subluxation of either hip. 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 Chest X-Ray 09/04/18 21:23 CONCLUSION: Mild bibasilar atelectasis. Abdomen/Pelvis CT 09/05/18 00:00 CONCLUSION: 1. Multiple pelvic fractures and anterior pelvic extraperitoneal hematoma 2. Likely benign and/or chronic findings involving the abdominal viscera as described Shoulder X-Ray 09/05/18 00:10 CONCLUSION: No evidence of recent bony injury. - Additional Comments The exam, history, and the medical decision-making described in the above note were completed with the assistance of the mid-level provider. I reviewed and agree with the findings presented. I attest that I had a [id number] encounter with the patient on the same day, and personally performed and documented my assessment and findings in the medical record. Discharge Plan - Discharge Order Discharge Orders: Discharge Order (Routine); Ordered 09/05/18 Ordered By: Aleshia Cueto - Discharge Details Anticipated Discharge Date: 09/05/18 Discharge Comment: DC to rehab when placement obtained - Physicians Team Primary Care Provider: UNKNOWN, Attending Provider: Aileen,Uatsdin Other Providers: Jair Marin MD ; Grath Avalos MD ; Juan Gallagher MD ; Systems[employer] ; Antoine Bravo MD ; Aleshia Cueto ARNP ; Elan Kathleen MD ; Heidy Ortiz MD ; Paige Thomas ARNP ; Sadie Walters MD
== END 2018-09-08 15:15 ==
LOC: NEPC 20:56 → NEDA 09-05 00:57 → NEPGCP 09-05 02:17 → N03 09-07 14:32
PROVIDERS: ADMIT Surgery; ATTEND Surgery